=== PATIENT | male | born 1985 ===

== ENCOUNTER → 2025-08-28 09:16 | Outpatient (CLI) | payer OTHER ==
[2025-08-28 10:22] LABS: BASO % 0.8 % (0.1-1.2); EOS # 0.09 (0.04-0.54); EOS % 1.8 % (0.7-7.0); LYMPH # 1.28 (1.18-3.74); LYMPH % 26.0 % (19.3-53.1); MEAN PLATELET VOLUME 9.70 fl (9.4-12.4); MONO # 0.28 (0.24-0.82); MONO % 5.7 % (4.7-12.5); NEUT # 3.23 (1.56-6.13); NEUT % 65.5 % (34.0-71.1); RED CELL DISTRIBUTION WIDTH 12.3 % (11.6-14.4)
[2025-08-28 10:25] LABS: URINE APPEARANCE Clear; URINE BILIRRUBIN Negative (NEGATIVE); URINE BLOOD Trace; URINE COLOR Yellow; URINE GLUCOSE Negative (NEGATIVE); URINE KETONE Negative (NEGATIVE); URINE LEUKOCYTE Negative; URINE NITRATE Negative; URINE PROTEIN Trace (NEGATIVE); URINE UROBILINOGEN 0.2 E.U./dl
[2025-08-28 10:26] LABS: URINE BACTERIA 22.7 uL (0.0-1933); URINE RBC 12.3 uL (0.0-20.8); URINE WBC 2.7 uL (0.0-23.2)
[2025-08-28 11:39] LABS: URINE CAST 0.14 uL (0.0-1.40); URINE EPITHELIAL CELLS 1.0 uL (0.0-38.8)
[2025-08-28 12:08] LABS: ALT/SGPT 64.0 U/L (12-78); AST/SGOT 28.0 U/L (15-37); BILIRUBIN TOTAL 0.65 mg/dL (0.3-1.2); BUN CREA RATIO 16.0 (7.0-25.0); CHOL HDL RATIO 5.3 (0-5.0); CREATININE SERUM 0.82 mg/dL (0.70-1.30); GFR 104.59; GLOBULINA 3.4 G/DL (2.4-3.5); GLUCOSE FASTING 88.0 mg/dL (65-100); HDL 39.0 mg/dl (40-60); LDL 144.0 mg/dl (0-130); OSMOLALITY SERUM 281.0 MOSM/KG (275-295); VLDL 22.0 (0-39)
== END | disposition home or self-care (01) ==
LOC: LAB 09:16
PROVIDERS: ATTEND Internal Medicine
DX: D50.0 Iron deficiency anemia secondary to blood loss (chronic) (principal); E11.9 Type 2 diabetes mellitus without complications; E78.2 Mixed hyperlipidemia; N39.0 Urinary tract infection, site not specified; R80.9 Proteinuria, unspecified

== ENCOUNTER 2025-08-28 10:42 | Outpatient (CLI) | payer OTHER | END 2025-08-28 10:47 | disposition home or self-care (01) | LOC: SONOGRAMA 10:42 | PROVIDERS: ATTEND Internal Medicine | DX: N20.0 Calculus of kidney (principal); E31.21 Multiple endocrine neoplasia [MEN] type I; M25.511 Pain in right shoulder; M25.512 Pain in left shoulder; K76.0 Fatty (change of) liver, not elsewhere classified; R74.01 Elevation of levels of liver transaminase levels ==